=== PATIENT | male | born 1930 | race Caucasian/White ===

== ENCOUNTER 2017-02-10 06:38 | Outpatient (CLI) | payer OTHER ==
[2017-02-10 07:08] LABS: CREATININE 1.4 mg/dL (0.60-1.10)
--- NOTE | 2017-02-10 08:28 | DI ---
EXAM: Two views of the chest. History: Chronic obstructive pulmonary disease Findings: Heart size is within normal limits. Hiatal hernia. No focal consolidation. No apprecia ble pleural fluid and no pneumothorax. Atherosclerotic vascular calcifications. A few calcified gr anulomas seen within the thorax. No acute osseous abnormalities. Impression: 1. No evidence for pneumonia. 2. Hiatal hernia.
--- NOTE | 2017-02-10 08:32 | CT ---
EXAM: CT of the abdomen pelvis with contrast History: Abdominal pain. Comparison: Chest CT 04/16/2011 Technique: Multiplanar CT images through the abdomen pelvis were obtained following administration of IV contrast Findings: Lung bases are free of consolidation. Calcified granuloma within the right lower lobe. No acute osseous abnormalities. Moderate to severe degenerative changes within the lumbar spine. Large hiatal hernia again noted. The liver is possibly fatty. Stable pneumobilia. Cholecystectomy clips. Spleen is unremarkable. No abnormal enhancement of the pancreas. 4 cm duodenal diverticulum. Adrenal glands are unremarkab le. No renal masses. No hydronephrosis. Atherosclerotic vascular calcifications. No bowel obstru ction. No free air. No ascites. Colonic diverticulosis. No perirectal inflammation. Prostate is not enlarged. Bladder is not well distended. There is mild circumferential bladder wall thickenin g. No perirectal inflammation. No pathologically enlarged lymph nodes. Impression: 1. No acute intra-abdominal or pelvic process. 2. Large hiatal hernia again noted. 3. Stable pneumobilia and stable duodenal diverticulum. 4. Colonic diverticulosis. 5. Mild circumferential bladder wall thickening probably related to the underdistended state. Mild cystitis is not excluded. Correlate with urinalysis. 6. Moderate to severe degenerative changes within the lumbar spine.
== END 2017-02-10 06:39 | disposition home or self-care (01) ==
LOC: RAD 06:38
PROVIDERS: ATTEND Internal Medicine
DX: R10.9 Unspecified abdominal pain (principal); J44.9 Chronic obstructive pulmonary disease, unspecified
CPT/HCPCS: 36415; 82565

== ENCOUNTER 2019-02-23 08:22 | Inpatient (IN) ==
[2019-02-23] MEDS ORDERED: DUONEB NEB STA (08:41)
[2019-02-23] MEDS ORDERED: ZOSYN 3.375 GM 3.375 GM in SODIUM CHLORIDE 50 ML IV STA (08:51)
--- NOTE | 2019-02-23 09:45 | DI ---
EXAM: Frontal chest HISTORY: Shortness of breath FINDINGS: Compared to 07/07/2018. Heart size is within normal limits. There is at least mild ather osclerotic disease. Moderate hiatal hernia is again suggested. There is diffuse, chronic appearing interstitial accentuation. No definite consolidated pneumonia. There is no vascular congestion, pne umothorax or pleural fluid. IMPRESSION: 1. No obvious acute cardiopulmonary process.
--- NOTE | 2019-02-23 10:28 | ED.PDOC ---
General ED Provider: Dr. JONAS QUINTANILLA Chief Complaint: Shortness of Air Stated Complaint: short of air posterior atraumatic neck pain onset last night Time Seen by Physician: 08:24 (seen with and his nurse ) Mode of Arrival: Walk-In Information Source: Patient Exam Limitations: No limitations Primary Care Provider: ARUN JI Nursing and Triage Documentation Reviewed and Agree: Yes Does patient meet sepsis criteria?: Yes If yes, has appropriate treatment been initiated?: Yes (zoscyn iv ) System Inflammatory Response Syndrome: Pulse >90 BPM, Resp >20/Minute Sepsis Protocol: For patient's 13 years and over: Temp is 96.8 and below OR 101 and greater Pulse >90 BPM Resp >20/minute Acutely Altered Mental Status Are patient's symptoms suggestive of a new infection, such as: -Pneumonia -Skin, Soft Tissue -Endocarditis -UTI -Bone, Joint Infection -Implantable Device -Acute Abdominal Infection -Wound Infection -Meningitis -Blood Stream Catheter Infection -Unknown Review of Systems - Review Of Systems Constitutional: Reports: Malaise Eyes: Reports: No symptoms Ears, Nose, Mouth, Throat: Reports: No symptoms Respiratory: Reports: Cough, Short of air Cardiac: Reports: No symptoms GI: Reports: No symptoms : Reports: No symptoms Musculoskeletal: Reports: Neck pain Skin: Reports: No symptoms Neurological: Reports: No symptoms Endocrine: Reports: No symptoms Hematologic/Lymphatic: Reports: No symptoms All Other Systems: Reviewed and Negative Past Medical History - Past Medical History Previously Healthy: No Endocrine: Reports: Hypothyroid, Dyslipidemia Cardiovascular: Reports: Hypertension Respiratory: Reports: None Hematological: Reports: None Gastrointestinal: Reports: None Genitourinary: Reports: None Neuro/Psych: Reports: None Musculoskeletal: Reports: None Cancer: Reports: None - Surgical History General Surgical History: Reports: None - Family History Family History: Reports: None - Social History Smoking Status: Never smoker Hx Substance Use: No Alcohol Screening: None Physical Exam - Physical Exam Appearance: Ill-appearing Ill-appearing: Mild Pain Distress: Mild Eyes: FRANK, EOMI, Conjunctiva clear ENT: Dry mucosa Respiratory: Airway patent, Breath sounds clear, Breath sounds equal, Respirations nonlabored Cardiovascular: RRR, Pulses normal, No rub, No murmur GI/: Soft, Nontender, No masses, Bowel sounds normal, No Organomegaly Musculoskeletal: Normal strength, ROM intact, No edema, No calf tenderness Skin: Warm, Dry, Normal color Neurological: Sensation intact, Motor intact, Reflexes intact, Cranial nerves intact, Alert, Oriented Psychiatric: Affect appropriate, Mood appropriate Interpretation - Radiology Interpretation Radiology Interpretation By: Radiologist Radiology Results: Negative Exam Interpreted: CXR Re-Evaluation - Re-Evaluation Time of Re-Evaluation: 09:00 Status: Improved Vital Signs Stable: Yes Pain Level: 0 Appearance: NAD Lungs: Clear Skin: Warm and Dry Neuro: Alert and Oriented X3 CV: RRR - Re-Evaluation Time of Re-Evaluation: 10:36 Status: Improved Vital Signs Stable: Yes Pain Level: 0 Appearance: NAD Skin: Warm and Dry Neuro: Alert and Oriented X3 CV: RRR Physician Notification - Case Discussed Physician Notified: pmd Time of Notification: 10:36 (admitt rule out place on tlem order start toradol and steroid ) Admit/Transition Orders Entered by ED Provider: Yes Admit To: Inpatient Critical Care Note - Critical Care Note Total Time (mins): 0 Course - Course Hematology/Chemistry: 02/23/19 09:04 02/23/19 09:04 Orders, Labs, Meds: Lab Review 02/23/19 02/23/19 02/23/19 08:40 09:04 09:04 WBC 10.36 H RBC 5.14 Hgb 15.7 Hct 47.2 MCV 91.8 MCH 30.5 MCHC 33.3 RDW Coeff of Ruben 13.7 Plt Count 486 H Immature Gran % (Auto) 0.3 Neut % (Auto) 79.0 Lymph % (Auto) 11.5 [place] % (Auto) 6.5 Eos % (Auto) 1.9 Baso % (Auto) 0.8 Immature Gran # (Auto) 0.0 Neut # (Auto) 8.2 H Lymph # (Auto) 1.2 [place] # (Auto) 0.7 Eos # (Auto) 0.2 Baso # (Auto) 0.1 PT INR APTT Puncture Site Lb O2 Saturation 99.0 ABG pH 7.495 H ABG pCO2 23.7 L ABG pO2 112.0 H ABG HCO3 18.2 L ABG Total CO2 19 L ABG Base Excess -5 L Yordan Test + FiO2 % 21.0 Sodium 139.4 Potassium 4.63 Chloride 99.6 Carbon Dioxide 27.2 Anion Gap 17.23 BUN 19.2 Creatinine 1.27 H Estimated GFR (MDRD) 54.00 BUN/Creatinine Ratio 15.11 Glucose 207.8 H Lactic Acid Calcium 9.57 Total Bilirubin 0.57 AST 30.5 ALT 18.7 Alkaline Phosphatase 59.6 Total Creatine Kinase 42.7 L Troponin I < 0.012 Total Protein 7.53 Albumin 4.60 Globulin 2.93 Albumin/Globulin Ratio 1.56 Procalcitonin 02/23/19 02/23/19 02/23/19 09:04 09:15 09:15 WBC RBC Hgb Hct MCV MCH MCHC RDW Coeff of Ruben Plt Count Immature Gran % (Auto) Neut % (Auto) Lymph % (Auto) [place] % (Auto) Eos % (Auto) Baso % (Auto) Immature Gran # (Auto) Neut # (Auto) Lymph # (Auto) [place] # (Auto) Eos # (Auto) Baso # (Auto) PT 10.5 INR 1.05 APTT 28.1 Puncture Site O2 Saturation ABG pH ABG pCO2 ABG pO2 ABG HCO3 ABG Total CO2 ABG Base Excess Yordan Test FiO2 % Sodium Potassium Chloride Carbon Dioxide Anion Gap BUN Creatinine Estimated GFR (MDRD) BUN/Creatinine Ratio Glucose Lactic Acid 2.67 H Calcium Total Bilirubin AST ALT Alkaline Phosphatase Total Creatine Kinase Troponin I Total Protein Albumin Globulin Albumin/Globulin Ratio Procalcitonin < 0.05 Orders Category Date Time Status ABG DRAW REQUEST Stat CARDIO 02/23/19 08:41 Completed NEBULIZER TREATMENT Stat CARDIO 02/23/19 08:41 Completed ED ACCUCHECK ASSESSMENT .ONCE EMERGENCY 02/23/19 08:37 Active ED IV/MEDIPORT/POWERPORT .ONCE EMERGENCY 02/23/19 08:41 Active ABG Stat LAB 02/23/19 08:40 Completed BLOOD CULTURE Stat LAB 02/23/19 09:15 Received CBC W/ AUTO DIFF Stat LAB 02/23/19 09:04 Completed COMPREHENSIVE METABOLIC PANEL Stat LAB 02/23/19 09:04 Completed CREATINE KINASE Stat LAB 02/23/19 09:04 Completed LACTIC ACID Stat LAB 02/23/19 09:15 Completed PARTIAL THROMBOPLASTIN TIME Stat LAB 02/23/19 09:15 Completed PROCALCITONIN Stat LAB 02/23/19 09:04 Completed PT WITH INR Stat LAB 02/23/19 09:15 Completed TROPONIN I Stat LAB 02/23/19 09:04 Completed UA [URINALYSIS C & S IF INDICATED] Stat LAB 02/23/19 08:51 Uncollected 0.9 % Sodium Chloride [Saline Flush] MEDS 02/23/19 08:41 Active 1 syr IVF PRN PRN Ipratropium/Albuterol Neb [Duoneb] MEDS 02/23/19 08:41 Discontinued 1 vial NEB ONCE STA Piperacillin Sodium/Tazobactam [Zosyn 3.375 gm] 3.375 MEDS 02/23/19 08:51 Discontinued gm 0.9 % Sodium Chloride [Sodium Chloride] 50 ml IV ONCE CHEST, 1V AP ONLY Stat RADS 02/23/19 08:40 Completed Medications Generic Name Dose Route Start Last Admin Trade Name Freq PRN Reason Stop Dose Admin Sodium Chloride 1 syr 02/23/19 08:41 Saline Flush IVF PRN PRN To flush IV Discontinued Medications Generic Name Dose Route Start Last Admin Trade Name Freq PRN Reason Stop Dose Admin Albuterol/Ipratropium 1 vial 02/23/19 08:41 02/23/19 09:05 Duoneb NEB 02/23/19 08:42 1 vial ONCE STA Administration Piperacillin Sod/Tazobactam 50 mls @ 50 mls/hr 02/23/19 08:51 02/23/19 09:22 Sod 3.375 gm/ Sodium Chloride IV 02/23/19 09:50 50 mls/hr ONCE STA Administration Vital Signs: Temp Pulse Resp BP Pulse Ox 02/23/19 08:22 98.5 F 103 H 22 106/59 L 96 Departure - Departure Time of Disposition: 10:38 Disposition: ADMITTED INPATIENT Discharge Problem: Shortness of breath Condition: Good Pt referred to PMD for follow-up: Yes IPMP verified?: No Additional Instructions: Please call your Family Physician as soon as possible to schedule a follow-up appointment. Allergies/Adverse Reactions: Allergies hydrocodone Adverse Reaction (Verified 02/23/19 08:52) Home Medications: Ambulatory Orders Ferrous Sulfate 325 mg PO DAILY 01/30/14 Lorazepam 1 mg PO DAILY 01/30/14 Paroxetine HCl [Paxil] 30 mg PO DAILY 01/30/14 Pravastatin Sodium [Pravachol] 40 mg PO BEDTIME 01/30/14 Terazosin HCl [Hytrin] 5 mg PO BID 01/30/14 Furosemide [Lasix Tab] 20 mg PO DIRECTED PRN 02/23/19 Levothyroxine Sodium [Synthroid] 50 mcg PO QDAC 02/23/19 Oxycodone HCl/Acetaminophen [Oxycodon-Acetaminophen 7.5-325] 1 each PO BID PRN 02/23/19 Pantoprazole Sodium [Protonix] 40 mg PO BID 02/23/19 Potassium Chloride [K-Dur] 10 meq PO 3 TIMES PER WEEK 02/23/19 Sucralfate [Carafate] 1 gm PO TID 02/23/19 Disposition Discussed With: Patient, Family
[2019-02-23] MEDS ORDERED: DECADRON 4 MG/ML SDV IM STA (10:32)
[2019-02-23] MEDS ORDERED: TORADOL IVP STA (10:32)
[2019-02-23] MEDS ORDERED: DECADRON 4 MG/ML SDV IVP STA (10:38)
[2019-02-23] MEDS ORDERED: VANCOMYCIN 1 GM in SODIUM CHLORIDE 250 ML IV STA (10:52)
[2019-02-23] MEDS ORDERED: K-DUR PO SCH (11:00)
[2019-02-23 12:25] VITALS: BMI 25.1
[2019-02-23] MEDS ORDERED: FLOMAX PO STA (12:39)
--- NOTE | 2019-02-23 15:18 | CT ---
EXAM: CT of the cervical spine without contrast History: Back pain and bilateral shoulder pain. Technique: Multiplanar CT images through the cervical spine were obtained without the administration of IV contrast Findings: The visualized upper lungs are clear. The visualized airway remains patent. No acute fracture or subluxation of the cervical spine. Osteopenia. Severe disc space narrowing at C6-7 with endplate sclerosis and osteophyte formation. Moderate disc space narrowing at C5-6. Mild to moderate disc space narrowing seen elsewhere. No prevertebral soft tissue swelling. Predental sp efrain is not widened. C2-3: Mild bony central canal stenosis. Moderate right and mild to moderate left bony neural foramin al narrowing secondary to uncovertebral and facet hypertrophy. C3-4: Mild to moderate bony central canal stenosis. Severe right and moderate to severe left bilate ral bony neural for narrowing secondary to uncovertebral and facet hypertrophy. C4-5: No significant bony central canal stenosis. Severe bilateral bony neural foraminal narrowing secondary to uncovertebral and facet hypertrophy. C5-6: No significant bony central canal stenosis. Severe bilateral bony neural foraminal narrowing secondary to uncovertebral and facet hypertrophy. C6-7: Mild bony central canal stenosis. Severe right and moderate left bony neural foraminal narrow ing secondary to uncovertebral and facet hypertrophy. Impression: 1. No acute osseous abnormality of the cervical spine. 2. Degenerative changes with level by level analysis as detailed above
[2019-02-23] MEDS: PERCOCET 7.5-325 PO PRN (16:12)
[2019-02-23] MEDS: CARAFATE PO SCH (16:12)
[2019-02-23] MEDS: PROTONIX PO SCH (16:12)
[2019-02-23] MEDS: HUMULIN R SUBCUT PRN ×2 (17:01→20:31)
[2019-02-23] MEDS: PRAVACHOL PO SCH (20:30)
[2019-02-23] MEDS: HYTRIN PO SCH (20:31)
[2019-02-24] MEDS: PERCOCET 7.5-325 PO PRN ×2 (00:50→20:26)
[2019-02-24] MEDS: SYNTHROID PO SCH (06:10)
[2019-02-24] MEDS: CARAFATE PO SCH ×3 (06:10→16:49)
[2019-02-24] MEDS: PROTONIX PO SCH ×2 (06:10→16:50)
[2019-02-24] MEDS ORDERED: MICRO-K CAP PO SCH (06:30)
[2019-02-24] MEDS ORDERED: LASIX TAB PO SCH (06:30)
[2019-02-24] MEDS: HYTRIN PO SCH ×2 (08:17→20:26)
[2019-02-24] MEDS: FLOMAX PO SCH (08:18)
[2019-02-24] MEDS: PAXIL PO SCH (08:18)
[2019-02-24] MEDS: FERROUS SULFATE PO SCH (08:18)
[2019-02-24] MEDS ORDERED: ATIVAN PO SCH (09:00)
[2019-02-24] MEDS ORDERED: NON-FORMULARY MEDICATION (Ferrous Sulfate [Ferrous Sulfate] 325 MG) PO SCH (09:00)
[2019-02-24] MEDS ORDERED: NON-FORMULARY MEDICATION (Paroxetine Hcl [Paxil] 30 MG) PO SCH (09:00)
--- NOTE | 2019-02-24 09:19 | PCM.PROG ---
Attending Provider: ATTENDING PROVIDER: Dr. ARUN JI DATE OF SERVICE: 02/24/19 SUBJECTIVE: This 88 year old WHITE/ M was hospitalized 02/23/19 with shortness of breath and neck pain from severe DJD of the spine. Some maybe related to panic type disorder from anxiety. A lot of the problems come from prostate which make filiberto up quite frequently through the night and during naps. REVIEW OF SYSTEMS: CONSTITUTIONAL: No night sweats. No fatigue, malaise, lethargy. No fever or chills. HEENT: Eyes: No visual changes. No eye pain. No eye discharge. ENT: No runny nose. No epistaxis. No sinus pain. No odynophagia. No congestion. RESPIRATORY: No cough, no congestion. No hemoptysis. Shortness of breath with exertion. CARDIOVASCULAR: No angina symptoms. No CHF symptoms. No atypical chest pain for CAD. No palpitations. No orthopnea.. GASTROINTESTINAL: No abdominal pain. No nausea or vomiting. No diarrhea or constipation. No hematemesis. No hematochezia. GENITOURINARY: No urgency. No frequency. No dysuria. No hematuria. No obstructive symptoms. No discharge. No pain. No significant abnormal bleeding. Prostatic type of symptoms. MUSCULOSKELETAL: No musculoskeletal pain; no joint swelling. Generalized osteoarthritis. NEUROLOGICAL: Awake, alert, oriented to time, place and person. No headache. No neck pain. No syncope. No seizures. No dizziness. PSYCHIATRIC: Not anxious. No depression. No suicidal thoughts. No homicidal thoughts. SKIN: No rash. No lesions. No wounds. ENDOCRINE: No unexplained weight loss. No weight gain. HEMATOLOGIC/LYMPHATIC: No anemia. No purpura. No petechiae. No prolonged or excessive bleeding. No palpable lymph nodes. PHYSICAL EXAMINATION: GENERAL: The patient is awake, alert and oriented to time, place and person, lying in bed in no distress. VITAL SIGNS: Temperature 97.6 F, Pulse 63, Respiratory Rate 20, BP 150/82, Pulse Ox 95% HEENT: Head normocephalic, atraumatic. Eyes: Extraocular muscles are intact. Pupils are equal, round and reactive to light and accommodation. Ears: No lesions. Nose appeared normal. Throat: No exudate or erythema. NECK: Supple. No JVD, no carotid bruit. No lymphadenopathy or thyromegaly. LUNGS: Clear to auscultation. Percussion note normal. Chest symmetrical. HEART: S1, S2, no S3. No murmurs. No cyanosis or clubbing. No ascites. Pulses: Dorsalis pedis and posterior tibial pulses +1 to +2 both sides. ABDOMEN: Soft. Non-tender. Bowel sounds active. No CVA tenderness. No mass felt. EXTREMITIES: No edema. Full range of motion of all extremities, equal. NEUROLOGIC: No focal deficit. Cranial nerves II through XII are grossly intact. No headache, no double vision or headache. SKIN: Warm and dry. Intact. Turgor-normal. LYMPHATIC: No palpable lymph nodes/no lymphedema. MUSCULOSKELETAL: Normal joints with no swelling. Muscle tone is normal. LAB REVIEW: 02/24/19 05:06 02/24/19 05:06 02/24/19 05:06: Sodium 134.8, Potassium 4.83, Chloride 97.4 L, Carbon Dioxide 26.9, Anion Gap 15.33, BUN 24.2 H, Creatinine 1.40 H, Estimated GFR (MDRD) 48.00 , BUN/Creatinine Ratio 17.28, Glucose 111.4 H D, Calcium 9.27, Total Bilirubin 0.73, AST 37.7, ALT 17.2, Alkaline Phosphatase 54.9 L, Total Protein 7.24, Albumin 4.42, Globulin 2.82, Albumin/Globulin Ratio 1.56 02/24/19 05:06: WBC 17.71 H D, RBC 5.06, Hgb 15.2, Hct 45.8, MCV 90.5, MCH 30.0 , MCHC 33.2, RDW Coeff of Ruben 13.9, Plt Count 564 H, Immature Gran % (Auto) 0.5 , Neut % (Auto) 74.5, Lymph % (Auto) 14.8, [place] % (Auto) 9.7, Eos % (Auto) 0.2, Baso % (Auto) 0.3, Immature Gran # (Auto) 0.1, Neut # (Auto) 13.2 H, Lymph # ( Auto) 2.6, [place] # (Auto) 1.7, Eos # (Auto) 0.0, Baso # (Auto) 0.1 02/23/19 13:35: Urine Color Yellow, Urine Clarity Clear, Urine pH 8.5, Ur Specific [place] 1.015, Urine Protein Negative, Urine Glucose (UA) Negative, Urine Ketones Negative, Urine Blood Negative, Urine Nitrite Negative, Urine Bilirubin Negative, Urine Urobilinogen 0.2, Ur Leukocyte Esterase Negative 02/23/19 09:15: Lactic Acid 2.67 H 02/23/19 09:15: PT 10.5, INR 1.05, APTT 28.1 02/23/19 09:04: Hemoglobin A1c 6.23 H 02/23/19 09:04: Procalcitonin < 0.05 02/23/19 09:04: Sodium 139.4, Potassium 4.63, Chloride 99.6, Carbon Dioxide 27.2 , Anion Gap 17.23, BUN 19.2, Creatinine 1.27 H, Estimated GFR (MDRD) 54.00, BUN/ Creatinine Ratio 15.11, Glucose 207.8 H, Calcium 9.57, Total Bilirubin 0.57, AST 30.5, ALT 18.7, Alkaline Phosphatase 59.6, Total Creatine Kinase 42.7 L, Troponin I < 0.012, Total Protein 7.53, Albumin 4.60, Globulin 2.93, Albumin/ Globulin Ratio 1.56 02/23/19 09:04: WBC 10.36 H, RBC 5.14, Hgb 15.7, Hct 47.2, MCV 91.8, MCH 30.5, MCHC 33.3, RDW Coeff of Ruben 13.7, Plt Count 486 H, Immature Gran % (Auto) 0.3, Neut % (Auto) 79.0, Lymph % (Auto) 11.5, [place] % (Auto) 6.5, Eos % (Auto) 1.9, Baso % (Auto) 0.8, Immature Gran # (Auto) 0.0, Neut # (Auto) 8.2 H, Lymph # ( Auto) 1.2, [place] # (Auto) 0.7, Eos # (Auto) 0.2, Baso # (Auto) 0.1 02/23/19 08:40: Puncture Site Lb, O2 Saturation 99.0, ABG pH 7.495 H, ABG pCO2 23.7 L, ABG pO2 112.0 H, ABG HCO3 18.2 L, ABG Total CO2 19 L, ABG Base Excess - 5 L, Yordan Test +, FiO2 % 21.0 ASSESSMENT: Please see below. 1. Shortness of breath could be related to inactivity and aging processes, echo in June [address] scan of head was negative 3. DJD of the spine. PLAN: 1. Continue pain medications and continue Alpha blockers from prostate 2. Ativan increased to twice a day Plan and coordination of the patient's care discussed in the presence of Customer Solutions Supervisor and nurse. CONDITION: Stable, Cardiovascular status is stable SCRIBED BY: Tobi ROGERS scribed while in presence of service performed by Dr. ARUN JI on 02/24/19 ([id number])
--- NOTE | 2019-02-24 13:24 | HP ---
DATE OF SERVICE: 02/23/19 REASON FOR HOSPITALIZATION: Shortness of air, neck pain. HISTORY OF PRESENT ILLNESS: 88-year-old white male was brought to the emergency room by the because of having shortness of air. Neck pain started 24 hours prior to hospitalization especially during the nighttime. The patient was quite anxious. According to the the patient has alot of anxiety related to family problems. Beside that the patient is short of breath with mild cough off and on. 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 He has to get up at night frequently, even during the daytime. He has been on Hytrin 5 mg twice a day. Bumex waS given but has not helped him. REVIEW OF SYSTEMS: CONSTITUTIONAL: Fatigue and weakness. No night sweats. No malaise, lethargy. No fever or chills. HEENT: Eyes: No visual changes. No eye pain. No eye discharge. ENT: No runny nose. No epistaxis. No sinus pain. No sore throat. No odynophagia. No ear pain. No congestion. RESPIRATORY: Mild cough mostly allergic in type with shortness of breath. No hempotysis. No hemoptysis. CARDIOVASCULAR: Shortness of breath. No PND, no orthpnea. No chest pain. No angina symptoms. No CHF symptoms. No palpitations. No PND. No orthopnea. GASTROINTESTINAL: The patient has reflux type of symptoms at times. No melena. No abdominal pain. No nausea or vomiting. No diarrhea or constipation. No hematemesis. No hematochezia. COMPUTER TYPESETTER: Neuropathy type of pain off and on the legs. GENITOURINARY: No urgency. No frequency. No dysuria. No hematuria. No obstructive symptoms. No discharge. No pain. No significant abnormal bleeding. MUSCULOSKELETAL: No musculoskeletal pain. No joint swelling. No arthritis. NEUROLOGICAL: No headache. No neck pain. No syncope. No seizures. No dizziness. PSYCHIATRIC: Not anxious. No depression. No suicidal thoughts. No homicidal thoughts. SKIN: No rash. No lesions. No wounds. ENDOCRINE: No unexplained weight loss. No weight gain. HEMATOLOGIC/LYMPHATIC: No anemia. No purpura. No petechiae. No prolonged or excessive bleeding. No palpable lymph nodes. PERSONAL/FAMILY/SOCIAL HISTORY: The patient lives with the . Nonsmoker. No alcohol use. Does all activity of daily living. Lately has been frustrated because he hasn't been able to do too much outside or inside. Complaining of a lot of back pain problems. MEDICATIONS: Ferrous Sulfate Lorazepam Paxil Pravastatin Hytrin Furosidemide Levothyroxine Oxycodone Pantoprazole Potassium Chloride Carafate ALLERGIES: HYDROCODONE PHYSICAL EXAMINATION: GENERAL: The patient is oriented to time, place and person. VITAL SIGNS: Temperature 98.5, pulse 100/min, respiratory rate 20, BP 106/60, pulse ox 96% on room air. The patient looks somewhat pale. HEENT: Head normocephalic, atraumatic. Eyes: Extraocular muscles are intact. Pupils are equal, round and reactive to light and accommodation. Ears: No lesions. Nose appeared normal. Throat: No exudate or erythema. NECK: Supple. No JVD, no carotid bruit. No lymphadenopathy or thyromegaly. LUNGS: Decreased breath sounds but clear to auscultation. Percussion note normal. Chest symmetrical. HEART: S1, S2, no S3. No murmurs. No cyanosis or clubbing. No ascites. Pulses: Dorsalis pedis and posterior tibial pulses +1 bilaterally. ABDOMEN: Soft. Nontender. Bowel sounds active. No CVA tenderness. No mass felt. EXTREMITIES: No pedal edema. Full range of motion of all extremities, equal. COMPUTER TYPESETTER: Normal with moving all extremities. NEUROLOGIC: No focal deficit. Cranial nerves II through XII are grossly intact. No headache, no double vision or headache. SKIN: Not dry. Intact. Turgor - normal. LYMPHATIC: No palpable lymph nodes/no lymphedema. MUSCULOSKELETAL: Normal joints with no swelling. Muscle tone is normal. LABS: Creatinine 1.2, BUN 19. Troponin and CK negative. EKG sinus rhythm, no acute changes. Arterial blood gases p02 112, pc02 23, pH 7.49 with 99% saturation on room air mostly because of hyperventilation. Glucose 207. Hemoglobin 15, hematocrit 47, WBC 10,300, normal differential. Lactic acid 2.67. Chest x-ray negative. ASSESSMENT: 1. Shortness of breath, neck pain, panic type of disorder, rule out any acute cardiac event. 2. Cervical radiculopathy. 3. Generalized anxiety disorder with depression. 4. Generalized osteoarthritis. 5. The patient has coronary artery disease with left anterior descending artery calcification. 6. History of leg edema, dependent. 7. Dyslipidemia. 8. Hiatal hernia. 9. Reflux disease. 10.Chronic lung disease. 11.Hyperglycemia. PLAN: 1. Routine telemetry orders which would include serial EKGs and cardiac markers , telemetry. 2. IV Toradol. Condition is stable. TIME SPENT: More than 70 minutes. MTDD
[2019-02-24] MEDS: PRAVACHOL PO SCH (20:26)
[2019-02-25 05:13] VITALS: BP 119/75; TEMP 98.4
[2019-02-25] MEDS: PROTONIX PO SCH (05:49)
[2019-02-25] MEDS: SYNTHROID PO SCH (05:49)
[2019-02-25] MEDS: CARAFATE PO SCH ×2 (05:49→11:49)
[2019-02-25] MEDS: PAXIL PO SCH (08:52)
[2019-02-25] MEDS: FERROUS SULFATE PO SCH (08:52)
[2019-02-25] MEDS: FLOMAX PO SCH (08:53)
[2019-02-25] MEDS: HYTRIN PO SCH (08:53)
[2019-02-25] MEDS ORDERED: ATIVAN PO SCH (09:00)
--- NOTE | 2019-02-25 09:44 | PCM.PROG ---
Attending Provider: ATTENDING PROVIDER: Dr. ARUN JI DATE OF SERVICE: 02/25/19 SUBJECTIVE: This 88 year old WHITE/ M was hospitalized 02/23/19 with shortness of breath and anxiety neurosis neck pain and prostatic symptoms. The patient is feeling better, 100% better according to him. The patient was given Ativan and Flomax to help him with his sleep from prostatitis symptoms. The patient has no symptoms of coronary artery disease and coronary insufficiency. The patient's echo in 2018 was practically normal. REVIEW OF SYSTEMS: CONSTITUTIONAL: No night sweats. No fatigue, malaise, lethargy. No fever or chills. HEENT: Eyes: No visual changes. No eye pain. No eye discharge. ENT: No runny nose. No epistaxis. No sinus pain. No odynophagia. No congestion. RESPIRATORY: No cough, no congestion. No hemoptysis. No shortness of breath. CARDIOVASCULAR: No angina symptoms. No CHF symptoms. No atypical chest pain for CAD. No palpitations. No orthopnea.. GASTROINTESTINAL: No abdominal pain. No nausea or vomiting. No diarrhea or constipation. No hematemesis. No hematochezia. GENITOURINARY: No urgency. No frequency. No dysuria. No hematuria. No obstructive symptoms. No discharge. No pain. No significant abnormal bleeding. MUSCULOSKELETAL: No musculoskeletal pain; no joint swelling. NEUROLOGICAL: Awake, alert, oriented to time, place and person. No headache. No neck pain. No syncope. No seizures. No dizziness. PSYCHIATRIC: Not anxious. No depression. No suicidal thoughts. No homicidal thoughts. SKIN: No rash. No lesions. No wounds. ENDOCRINE: No unexplained weight loss. No weight gain. HEMATOLOGIC/LYMPHATIC: No anemia. No purpura. No petechiae. No prolonged or excessive bleeding. No palpable lymph nodes. PHYSICAL EXAMINATION: GENERAL: The patient is awake, alert and oriented, lying in bed in no distress. VITAL SIGNS: Temperature 98.4 F, Pulse 72, Respiratory Rate 16, BP 119/75, Pulse Ox 95% HEENT: Head normocephalic, atraumatic. Eyes: Extraocular muscles are intact. Pupils are equal, round and reactive to light and accommodation. Ears: No lesions. Nose appeared normal. Throat: No exudate or erythema. NECK: Supple. No JVD, no carotid bruit. No lymphadenopathy or thyromegaly. LUNGS: Clear to auscultation. Percussion note normal. Chest symmetrical. HEART: S1, S2, no S3. No murmurs. No cyanosis or clubbing. No ascites. Pulses: Dorsalis pedis and posterior tibial pulses +1 to +2 both sides. ABDOMEN: Soft. Non-tender. Bowel sounds active. No CVA tenderness. No mass felt. EXTREMITIES: No edema. Full range of motion of all extremities, equal. NEUROLOGIC: No focal deficit. Cranial nerves II through XII are grossly intact. No headache, no double vision or headache. SKIN: Warm and dry. Intact. Turgor-normal. LYMPHATIC: No palpable lymph nodes/no lymphedema. MUSCULOSKELETAL: Normal joints with no swelling. Muscle tone is normal. LAB REVIEW: 02/25/19 04:48 02/25/19 04:48 02/25/19 04:48: Sodium 136.5, Potassium 4.34, Chloride 97.0 L, Carbon Dioxide 27.6, Anion Gap 16.24, BUN 19.8, Creatinine 1.31 H, Estimated GFR (MDRD) 52.00, BUN/Creatinine Ratio 15.11, Glucose 96.5, Calcium 9.03, Total Bilirubin 0.76, AST 59.9 H, ALT 19.4, Alkaline Phosphatase 49.8 L, Total Protein 6.90, Albumin 4.21, Globulin 2.69, Albumin/Globulin Ratio 1.56 02/25/19 04:48: WBC 12.02 H D, RBC 4.93, Hgb 14.9, Hct 44.3, MCV 89.9, MCH 30.2 , MCHC 33.6, RDW Coeff of Ruben 13.6, Plt Count 528 H, Immature Gran % (Auto) 0.3 , Neut % (Auto) 59.8, Lymph % (Auto) 22.5, [place] % (Auto) 11.9 H, Eos % (Auto) 4.7, Baso % (Auto) 0.8, Immature Gran # (Auto) 0.0, Neut # (Auto) 7.2 H, Lymph # (Auto) 2.7, [place] # (Auto) 1.4, Eos # (Auto) 0.6, Baso # (Auto) 0.1 ASSESSMENT: Please see below. 1. Prostatitis symptoms, improved 2. Generalized osteoarthritis pain, under control 3. Anxiety neurosis under control with Ativan twice a day PLAN: 1. Will continue Oxycodone 2. The patient's conditio is stable, we will discharge home Plan and coordination of the patient's care discussed in the presence of Employment Programs Analyst and nurse. CONDITION: Stable SCRIBED BY: MAYUR CHILEL Plate Printer scribed while in presence of service performed by Dr. ARUN JI on 02/25/19 (1959)
--- NOTE | 2019-02-25 10:00 | DS ---
DATE OF SERVICE: 02/25/19 FINAL DIAGNOSIS: 1. GENERALIZED ANXIETY DISORDER 2. CERVICAL RADICULOPATHY 3. PROSTATISM 4. CAD 5. [place], 1982 6. HYPERTENSION 7. DYSLIPIDEMIA 8. HYPOTHYROID 9. 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 AN APPOINTMENT IS SCHEDULED WITH DR. JI/AILYN BELTRAN APRN ON February AT 8 AM. CODE STATUS: DNR PER PATIENT. TAKE THESE MEDICATIONS AT HOME: Ferrous Sulfate (Ferrous Sulfate) 324 mg PO DAILY [facility] Furosemide (Lasix Tab) 20 mg PO EVERY OTHER DAY@0630 [facility] Levothyroxine Sodium (Synthroid) 50 mcg PO QDAC [facility] Lorazepam (Ativan) 1 mg PO BID [facility] Oxycodone/Acetaminophen (Percocet 7.5-325) 1 tab PO BID PRN Pantoprazole Sodium (Protonix) 40 mg PO BIDAC [facility] Paroxetine HCl (Paxil) 30 mg PO DAILY [facility] Potassium Chloride (Micro-K Cap) 10 meq PO EVERY OTHER DAY@0630 [facility] Pravastatin Sodium (Pravachol) 40 mg PO BEDTIME [facility] Sucralfate (Carafate) 1 gm PO TIDAC [facility] Tamsulosin HCl (Flomax) 0.4 mg PO BID [facility] Terazosin HCl (Hytrin) 5 mg PO BID [facility] ALLERGIES: hydrocodone Adverse Reaction (Verified 02/23/19 08:52) DISCONTINUED MEDICATIONS: NONE MEDICATION CHANGES: INCREASE ATIVAN TO BID NEW PRESCRIPTIONS: ATIVAN 1 MG BID FLOMAX 0.4 MG BID SMOKING: NOT APPLICABLE DISEASE SPECIFIC EDUCATION: NEW MEDICATION AND PURPOSE INCREASED DOSE OF MEDICATION APPOINTMENT DIET: TOLERATED, HEART HEALTHY ACTIVITY: RESUME TOLERATED HOSPITAL COURSE: 88 year old white man was hospitalized with prostatitis type of symptoms and shortness of breath. The patient has panic with anxiety type disorder. The patient has been unable to sleep during the daytime and night because of severe prostatitis symptoms which is under control now. Ativan was increased to twice a day. The patient will discharged home on the same medications in addition to Flomax and increasing the dosage of Ativan. The patient's cardiovascular status is stable and no further workup will be needed. CONDITION: Stable. TIME SPENT: More than 60 minutes. MTDD
--- NOTE | 2019-02-25 10:01 | PN ---
02/23/19: Level 5 02/24/19: Intermediate 02/25/19: D as in discharge MTDD
--- NOTE | 2019-02-25 11:10 | CM.DICTOOL ---
ADMISSION: 02/23/19 10:55 DISCHARGE: FEBRUARY 25, 2019 DATE OF SERVICE: 02/25/19 FINAL DIAGNOSIS GENERALIZED ANXIETY DISORDER CERVICAL RADICULOPATHY PROSTATISM CAD [place], 1982 HYPERTENSION DYSLIPIDEMIA HYPOTHYROID GERD HIATAL HERNIA BLEEDING ULCER: 2-3 YRS AGO - BLOOD TRANSFUSION AT [facility] CIRRHOSIS NOCTURIA HYPERTHYROIDISM BILATERAL CATARACT EXTRACTION CHOLECYSTECTOMY SKIN CA REMOVED FROM NOSE FORMER SMOKER, QUIT 1982 ECHO 06/2018: NORMAL - LVEF 68% PFT 06/2018, INSUFFICIENT DATA LAST VITALS Temp Pulse Resp BP Pulse Ox 98.4 F 72 16 119/75 95 02/25/19 05:12 02/25/19 05:12 02/25/19 05:12 02/25/19 05:12 02/25/19 05:12 TAKE THESE MEDICATIONS AT HOME Ferrous Sulfate (Ferrous Sulfate) 324 mg PO DAILY [facility] Last Admin: 02/25/19 08:52 Dose: 324 mg Furosemide (Lasix Tab) 20 mg PO EVERY OTHER DAY@0630 [facility] Last Admin: 02/24/19 06:10 Dose: 20 mg Levothyroxine Sodium (Synthroid) 50 mcg PO QDAC [facility] Last Admin: 02/25/19 05:49 Dose: 50 mcg Lorazepam (Ativan) 1 mg PO BID [facility] Last Admin: 02/25/19 08:52 Dose: 1 mg Oxycodone/Acetaminophen (Percocet 7.5-325) 1 tab PO BID PRN PRN Reason: Analgesia Last Admin: 02/24/19 20:26 Dose: 1 tab Pantoprazole Sodium (Protonix) 40 mg PO BIDAC [facility] Last Admin: 02/25/19 05:49 Dose: 40 mg Paroxetine HCl (Paxil) 30 mg PO DAILY [facility] Last Admin: 02/25/19 08:52 Dose: 30 mg Potassium Chloride (Micro-K Cap) 10 meq PO EVERY OTHER DAY@0630 [facility] Last Admin: 02/24/19 06:10 Dose: 10 meq Pravastatin Sodium (Pravachol) 40 mg PO BEDTIME [facility] Last Admin: 02/24/19 20:26 Dose: 40 mg Sucralfate (Carafate) 1 gm PO TIDAC [facility] Last Admin: 02/25/19 05:49 Dose: 1 gm Tamsulosin HCl (Flomax) 0.4 mg PO BID [facility] Last Admin: 02/25/19 08:53 Dose: 0.4 mg Terazosin HCl (Hytrin) 5 mg PO BID [facility] Last Admin: 02/25/19 08:53 Dose: 5 mg ALLERGIES hydrocodone Adverse Reaction (Verified 02/23/19 08:52) DISCONTINUED MEDICATIONS NONE MEDICATION CHANGES INCREASE ATIVAN TO BID NEW PRESCRIPTIONS: ATIVAN 1 MG BID FLOMAX 0.4 MG BID SMOKING: NOT APPLICABLE DISEASE SPECIFIC EDUCATION: NEW MEDICATION AND PURPOSE INCREASED DOSE OF MEDICATION APPOINTMENT LAB REVIEW: 02/25/19 04:48 02/25/19 04:48 02/25/19 04:48: Sodium 136.5, Potassium 4.34, Chloride 97.0 L, Carbon Dioxide 27.6, Anion Gap 16.24, BUN 19.8, Creatinine 1.31 H, Estimated GFR (MDRD) 52.00, BUN/Creatinine Ratio 15.11, Glucose 96.5, Calcium 9.03, Total Bilirubin 0.76, AST 59.9 H, ALT 19.4, Alkaline Phosphatase 49.8 L, Total Protein 6.90, Albumin 4.21, Globulin 2.69, Albumin/Globulin Ratio 1.56 02/25/19 04:48: WBC 12.02 H D, RBC 4.93, Hgb 14.9, Hct 44.3, MCV 89.9, MCH 30.2 , MCHC 33.6, RDW Coeff of Ruben 13.6, Plt Count 528 H, Immature Gran % (Auto) 0.3 , Neut % (Auto) 59.8, Lymph % (Auto) 22.5, [place] % (Auto) 11.9 H, Eos % (Auto) 4.7, Baso % (Auto) 0.8, Immature Gran # (Auto) 0.0, Neut # (Auto) 7.2 H, Lymph # (Auto) 2.7, [place] # (Auto) 1.4, Eos # (Auto) 0.6, Baso # (Auto) 0.1 PLAN: DISCHARGE HOME DIET: TOLERATED, HEART HEALTHY ACTIVITY: RESUME TOLERATED AN APPOINTMENT IS SCHEDULED WITH DR. JI/AILYN BELTRAN APRN ON February AT 8 AM CODE STATUS: DNR PER PATIENT MR. DELA CRUZ IS ALERT AND ORIENTED X 3. MR. DELA CRUZ IS AGREEABLE TO DISCHARGE PLANS FOR TODAY. HE IS INDEPENDENT WITH ADL'S AND LIVES AT HOME WITH HIS AND ADULT SON. HE REPORTS HE IS FEELING 100% BETTER TODAY. HE IS CONTINENT OF URINE AND REPORTS LESS FREQUENCY AND IMPROVED URINARY STREAM. HE IS CONTINENT OF BOWELS. MR. DELA CRUZ IS INDEPENDENT WITH AMBULATION AND DOES NOT REQUIRE USE OF AN ASSISTIVE DEVICE WITH AMBULATION. HE FEEDS HIMSELF AND MEAL INTAKES ARE GOOD AT 50-100%. HE DENIES ANY ABDOMINAL PAIN OR NAUSEA. A LARGE BM WAS REPORTED YESTERDAY. SKIN TURGOR IS GOOD, HYDRATION STATUS IS GOOD. SKIN IS INTACT AND FREE OF DECUBITUS ULCERS. ARUN JI MD
== END 2019-02-25 13:30 | disposition home or self-care (01) | DRG 880 ==
LOC: ED 08:22 → MEDSURG B 10:55
PROVIDERS: ADMIT Internal Medicine; ATTEND Internal Medicine
DX: F41.1 Generalized anxiety disorder (principal); F32.9 Major depressive disorder, single episode, unspecified; N40.0 Benign prostatic hyperplasia without lower urinary tract symptoms; N41.9 Inflammatory disease of prostate, unspecified; I25.10 Atherosclerotic heart disease of native coronary artery without angina pectoris; I25.2 Old myocardial infarction; I10 Essential (primary) hypertension; E78.5 Hyperlipidemia, unspecified; E03.9 Hypothyroidism, unspecified; K21.9 Gastro-esophageal reflux disease without esophagitis; K44.9 Diaphragmatic hernia without obstruction or gangrene; K74.60 Unspecified cirrhosis of liver; M47.9 Spondylosis, unspecified; M54.2 Cervicalgia; M54.12 Radiculopathy, cervical region; M15.9 Polyosteoarthritis, unspecified; R53.81 Other malaise; R05 Cough; R35.1 Nocturia; R73.9 Hyperglycemia, unspecified
CPT/HCPCS: 36415; 80053; 81001; 82550; 82803; 82962; 83036; 83605; 84145; 84484; 85025; 85610; 85730; 87040; 94640; 96365; 96375; 99284